=== PATIENT | female | born 1950 ===

== ENCOUNTER → 2018-07-20 16:08 | Outpatient (REF) | payer OTHER, SELFPAY ==
[2018-07-20 16:55] LABS: Alanine Aminotransferase 30 IU/L (9-52); Albumin 4.6 g/dL (3.5-5.0); Albumin Globulin Ratio 1.4 (1.0-2.8); Alkaline Phosphatase 89 U/L (38-126); Aspartate Aminotransferase 23 IU/L (14-36); BUN Creatinine Ratio 20.9 (6-22); Bilirubin Total 0.5 mg/dL (0.2-1.3); Blood Urea Nitrogen 23 mg/dL (7-17); Calcium 9.6 mg/dL (8.4-10.2); Carbon Dioxide 26 mmol/L (22-32); Chloride 104 mmol/L (98-107); Cholesterol 160 mg/dL (140-199); Estimated Glomerular Filt Rate 49.8 mL/min (>60); Globulin 3.4 g/dL (1.7-4.1); Glucose 94 mg/dL (80-110); HDL Cholesterol 53 mg/dL (40-60); HEMOLYSIS < 15 (0-50); LDL Cholesterol Calculated 90 mg/dL (<100); Potassium 4.3 mmol/L (3.4-5.1); Sodium 141 mmol/L (137-145); Triglycerides 84 mg/dL (35-150)
[2018-07-20 17:23] LABS: TSH w/ Reflex to FT4 3.27 uIU/mL (0.47-4.68)
== END ==
LOC: LAB 16:08
PROVIDERS: Visit Provider Specialist
DX: I10 Essential (primary) hypertension (principal); E03.9 Hypothyroidism, unspecified; E78.5 Hyperlipidemia, unspecified
CPT/HCPCS: 80053; 80061; 82088; 84443